=== PATIENT | female | born 1945 | race Caucasian/White ===

== ENCOUNTER → 2017-01-27 | Outpatient (CLI) | payer OTHER, BC ==
[~2017-01-27] VITALS: Ht 160 cm; Wt 65.8 kg
[~2017-01-27] MED LIST: ACCUNEB SO1.25 MG/1 INH; ADVAIR 100-501 EACH INH; ATENOLOL 25 MG25 M1 PO; B COMPLETE1 EAC1 PO; CALCIUM 500 +1 EAC5 PO; DIOVAN40 MG PO; DULERA 200 MCG/13 GM; LEVOTHYROXIN0.025 MG PO; NORVASC 5 MG TAB5 MG PO; OXYBUTYNIN 5 MG5 M2 PO; POTASSIUM20 PO; PRAVACHOL 20 MG20 M1 PO; PRAVACHOL40 MG PO; PREVACID 30MG C30 M1 PO; PREVACID30 MG PO; PROVENTIL17 G1 IH; SINEMET 25-1001 EAC1 PO; SINGULAIR 10 MG10 M1 PO; SYMBICORT80 MCG/4.1 INH; SYNTHROID; TURMERIC500 MG PO; ZYRTEC10 M5 PO
--- NOTE | ~2017-01-27 | P ---
[facility] [place] [address] PROCEDURE REPORT Name: DIOGENES MIX Room #: REG [facility].#: [id number] Admission: 01/27/17 Attend Phys: Alli Rebolledo MD Discharge: Date of : 41 Report #: [id number] THIS REPORT FOR: //name// CC: Alli Solorzano MD BRIEF HISTORY: The patient is a 72-year-old woman with a history of colon polyps, for high-risk screening colonoscopy. PREOPERATIVE DIAGNOSIS: High-risk screening colonoscopy due to its colon polyps. POSTOPERATIVE DIAGNOSES: 1. Colon polyp. 2. Zuom-jg-scenckta sigmoid diverticular disease. MEDICATIONS: Deep sedation with propofol per anesthesia. SPECIMEN: Polyp from 40 cm. ESTIMATED BLOOD LOSS: 3 mL. PROCEDURE: Colonoscopy to cecum and terminal ileum with snare polypectomy. FINDINGS: Prior to propofol sedation, procedure of colonoscopy discussed with the patient as well as potential risks and its complications. She indicates she understands and desires to proceed. DESCRIPTION OF PROCEDURE: With the patient in the left lateral decubitus position, digital examination was completed, which revealed no abnormalities. Subsequently, the Godengo video colonoscope was introduced into the rectum and advanced under direct vision to the cecum. Done with minimal difficulty. The cecum was identified by the ileocecal valve and the appendiceal orifice. I was able to visualize the distal segment of the terminal ileum, which was inspected and noted to be unremarkable. At that point, the scope was slowly withdrawn and careful circumferential views obtained, including retroflexing the scope in the ascending colon. Upon slow withdrawal of the scope, there were noted be some limitations. However, fortunately, we were able to clean up almost all of this material and overall, we were able to obtain a good prep. The mucosa was within normal limits. Normal vascular pattern, normal light reflex. As we withdrew the scope, the mucosa was normal and no abnormalities were noted until the sigmoid colon was reached. In the proximal sigmoid colon at 40 cm, a 6-mm sessile polyp was seen and removed by cold snare polypectomy and recovered. Scope was further withdrawn and there was noted to be pmmo-jl-phewhxfp diverticular disease and endoscopic evidence of diverticulitis. Scope was withdrawn in the rectum. Upon retroflexion, no additional abnormalities were [address] [address] PROCEDURE REPORT Name: DIOGENES MIX Room #: REG [facility]#: [id number] Admission: 01/27/17 Attend Phys: Alli Rebolledo MD Discharge: Date of : 41 Report #: [id number]. Scope was withdrawn. The patient tolerated the procedure well. CONDITION OF THE PATIENT UPON DISCHARGE: Following the procedure, the patient drowsy, aroused and conversant and will be discharged home when fully ambulatory. INSTRUCTIONS TO THE PATIENT AND FAMILY AT THE TIME OF DISCHARGE: We will follow up on the path of the polyp. If this is an adenoma, she will return in 5 years. If it is not a neoplastic polyp, then 10 years would be indicated. Suggest high-fiber diet for the diverticular disease. Last colonoscopy was more than 4 years ago. Withdrawal time from cecum was 18 minutes. By: 0853 [id number] Alli Rebolledo MD /nt
--- NOTE | ~2017-01-27 | P ---
[facility] [place] [address] PROCEDURE REPORT Name: DIOGENES MIX [facility] [id number] Admission: 01/27/17 Attend Phys: Alli Rebolledo MD Discharge: Date of : 41 Report #: [id number] THIS REPORT FOR: //name// CC: Alli Solorzano MD DATE OF SERVICE: 01/27/2017 BRIEF HISTORY: The patient is a 72-year-old woman with recurrent solid food dysphagia. PREOPERATIVE DIAGNOSIS: Recurrent solid food dysphagia. POSTOPERATIVE DIAGNOSES: 1. Dysphagia. 2. Diffuse gastritis. 3. Multiple benign appearing polyps body and fundus of the stomach. MEDICATIONS: Deep sedation with propofol per anesthesia. SPECIMEN: None. ESTIMATED BLOOD LOSS: None. PROCEDURE: EGD and Cruz dilation. FINDINGS: Prior to propofol sedation, procedure of upper endoscopy and dilation was reviewed with the patient as well as potential risks and its complications. She indicates she understands and desires to proceed. DESCRIPTION OF PROCEDURE: With the patient in left lateral decubitus position, the Clipyooi video endoscope was inserted in the cervical esophagus under direct vision without difficulty. Examination of this organ through its entire length revealed normal esophageal mucosa down the squamocolumnar junction. The squamocolumnar junction was identified and was intact and appeared to be normal and appropriate position. No ulcers or erosions were seen. I did not see an obvious stricture or ring, but she has been presumed to have a Schatzki ring in the past. A significant hiatus hernia was not seen. Scope was advanced in the stomach, which was examined on end view as well as retroflexed views. There was erythema in the antrum of the stomach consistent with gastritis. This has been noted in the past and previous biopsies were negative for H. pylori and those were not repeated today. Examination of the proximal stomach on end view as well as retroflexed views revealed multiple small gastric polyps. These have been identified before and likely represent hyperplastic polyps in a patient with the chronic use of PPIs. The pylorus, duodenal bulb and postbulbar sweep [facility] [address] [place] [address] PROCEDURE REPORT Name: DIOGENES MIX Room #: REG [facility].#: [id number] Admission: 01/27/17 Attend Phys: Alli Rebolledo MD Discharge: Date of : 41 Report #: [id number] were inspected and noted to be unremarkable. At that point, the scope was slowly withdrawn and careful circumferential views confirmed the above findings. The patient tolerated the procedure well. Following the procedure, she was dilated with passage of 52 Khmer Cruz dilator. There was no resistance. INSTRUCTIONS TO THE PATIENT AND FAMILY AT THE TIME OF DISCHARGE: Although I did not see an obvious stricture, ring is presumed, one is present. We can repeat dilation on an as needed basis based on symptoms. She does have a history of Parkinson disease, but she has also had this problem in the past. She is to return on an as needed basis. As far as PPIs, she may take them less daily if her symptoms are controlled with a target of lowest dose to control symptoms. Proceed with colonoscopy at this time. By: 0815 1335 Alli Rebolledo MD /nt
== END | disposition home or self-care (01) ==
LOC: GI 06:55
DX: Z12.11 Encounter for screening for malignant neoplasm of colon (principal); K63.5 Polyp of colon; K31.7 Polyp of stomach and duodenum; K57.30 Diverticulosis of large intestine without perforation or abscess without bleeding; R13.19 Other dysphagia; K29.60 Other gastritis without bleeding; G20 Parkinson's disease; I10 Essential (primary) hypertension; J45.909 Unspecified asthma, uncomplicated; E78.00 Pure hypercholesterolemia, unspecified; E03.9 Hypothyroidism, unspecified; K21.9 Gastro-esophageal reflux disease without esophagitis; Z90.710 Acquired absence of both cervix and uterus; Z98.42 Cataract extraction status, left eye; Z98.41 Cataract extraction status, right eye; Z96.1 Presence of intraocular lens; Z98.890 Other specified postprocedural states
CPT/HCPCS: 62110

== ENCOUNTER 2020-03-05 14:26 | Inpatient (IN) | payer OTHER, BC ==
[~2020-03-05] VITALS: Ht 160 cm; Wt 64.0 kg
[2020-03-05 14:36] VITALS: BP 236/99
[2020-03-05 15:04] LABS: ABSOLUTE NEUTROPHILS 4.8 thou/uL (1.4-8.2); BASOPHILS 0.8 % (0.0-2.0); EOSINOPHILS 1.2 % (0.0-3.0); HEMATOCRIT 38.1 % (37.0-47.0); HEMOGLOBIN 13.1 gm/dL (12.0-15.0); LYMPHOCYTES 13.2 % (24.0-44.0); MCH 30.4 pg (26.0-34.0); MCHC 34.3 g/dL (28.0-37.0); MCV 88.6 fL (80.0-100.0); MONOCYTES 9.8 % (1.0-8.0); PLATELET COUNT 210 thou/uL (150-400); RBC 4.31 mil/uL (4.20-5.00); WBC 6.4 thou/uL (4.0-11.0)
[2020-03-05 15:16] LABS: CALCIUM 9.2 mg/dL (8.5-10.1); CREATININE 1.4 mg/dL (0.6-1.0)
[2020-03-05 15:23] LABS: ALBUMIN 3.5 g/dL (3.4-5.0); TOTAL BILIRUBIN 0.5 mg/dL (<0.1-1.0); TOTAL PROTEIN 7.4 g/dL (6.4-8.2)
[2020-03-05 15:24] LABS: POTASSIUM 2.9 mmol/L (3.5-5.1)
[2020-03-05 18:09] VITALS: BP 217/101
[2020-03-05 18:21] VITALS: BP 206/87
--- NOTE | 2020-03-05 18:22 | NUR ---
ATTEMPTED TO CALL REPORT TO CCU. NURSE UNAVAILABLE AND WILL CALL BACK
[2020-03-05 19:30] VITALS: BP 229/72; BP 229/80
[2020-03-05] MEDS ORDERED: METRONIDAZOLE500 M4 PO (20:15)
[2020-03-05] MEDS ORDERED: RIVASTIGMINE6 MG PO (20:16)
[2020-03-05] MEDS ORDERED: ZOLOFT 50 MG TA50 M1 PO (20:17)
[2020-03-05] MEDS ORDERED: BYSTOLIC10 MG PO (20:20)
[2020-03-06] VITALS (7 sets, daily range): BP systolic 115–208; BP diastolic 52–88
--- NOTE | 2020-03-06 02:19 | NUR ---
PATIENT ADMITTED FROM ER PER CART AT 1900. ADMISSION PROCESS COMPLETED. UP AD RODRIGO IN ROOM WITH STEADY GAIT. BP 229/80 ON ADMIT - NOTIFIED DR. RODRIGUEZ AND CONSULTED DR BURGOS FOR FURTHER ORDERS. BP MEDICATIONS GIVEN. DENIES FEELINGS OF DIZZYNESS OR HEADACHE AT THIS TIME. INSTRUCTED TO NOTIFY NURSE AT ONCE IF SYPTOMS ARISE. DENIES COMPLAINTS OF PAIN. WORKING ON GOALS AND PLAN OF CARE FOR NOC. ORIENTED TO ROOM AND FLOOR POLICIES. 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 CONTINUE TO ASSES CLOSELY.
--- NOTE | 2020-03-06 04:53 | NUR ---
[address] BURGOS PAST MEDICATIONS ORDERED BP STILL ELEVATED AT 207/66. ORDERS RECIEVED AND ASKED TO JUST LET HER SLEEP THE REST OF NOC. PATIENT DENIES COMPLAINTS OF PAIN, DIZZYNESS OR HEADACHE. CONTINUE TO ASSES CLOSELY. HEART RATE IN THE 40'S WHILE SLEEPING - INFORMED DR. BURGOS. NO ORDERS FOR HR.
[2020-03-06 05:40] LABS: HEMATOCRIT 35.5 % (37.0-47.0); HEMOGLOBIN 11.9 gm/dL (12.0-15.0); MCH 30.1 pg (26.0-34.0); MCHC 33.5 g/dL (28.0-37.0); MCV 89.9 fL (80.0-100.0); RBC 3.95 mil/uL (4.20-5.00); RDW 14.8 % (10.5-14.5)
[2020-03-06 06:08] LABS: CALCIUM 8.6 mg/dL (8.5-10.1); CREATININE 1.2 mg/dL (0.6-1.0); POTASSIUM 3.3 mmol/L (3.5-5.1)
[2020-03-06] MEDS ORDERED: OXYBUTYNIN CHLO15 MG PO (06:56)
--- NOTE | 2020-03-06 07:59 | EKG ---
[facility] [place] [address] ELECTROCARDIOGRAM REPORT Name: DIOGENES MIX Room #: 211-P ADM IN M.R.#: [id number] Admission: 03/05/20 Attend Phys: Shakeel Solorzano MD Discharge: Date of : 41 Report #: [id number] THIS REPORT FOR: cc: Shakeel Solorzano MD, Neal A. 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 : 1945 Requested By: Emiliano Bowman Order Number: [id number] MD: Raoul Morales Measurements Intervals [place] Rate: 63 P: 21 AL: 178 QRS: -17 QRSD: 115 T: -13 QT: 569 QTc: 583 Interpretive Statements Sinus rhythm LVH with IVCD and secondary repol abnrm Prolonged QT interval Compared to ECG 02/15/2011 11:04:06 Prolonged QT interval now present Nonspecific change in the ST and T wave segments Electronically Signed On 03-06-2020 7:57:51 CDT by Raoul Morales [email or web address] <ELECTRONICALLY SIGNED> By: Raoul Morales MD, [facility] 03/06/20 0757 1516 1516 Raoul Morales MD, [facility] /EPI
--- NOTE | 2020-03-06 08:11 | EKG ---
[facility] [place] [address] ELECTROCARDIOGRAM REPORT Name: DIOGENES MIX Room #: 211-P ADM IN M.R.#: [id number] Admission: 03/05/20 Attend Phys: Shakeel Solorzano MD Discharge: Date of : 41 Report #: [id number] THIS REPORT FOR: cc: Shakeel Solorzano MD, Neal A. 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 : 1945 Requested By: Howard Barrett Order Number: [id number] MD: Raoul Morales Measurements Intervals [place] Rate: 51 P: 37 [place]: 163 QRS: -13 QRSD: 98 T: -60 QT: 448 QTc: 413 Interpretive Statements Sinus bradycardia LVH with secondary repolarization abnormality Nonspecific ST and T wave abnormality Compared to ECG 02/15/2011 11:04:06 Early R wave progression no longer present Electronically Signed On 03-06-2020 8:09:39 CDT by Raoul Morales [email or web address] <ELECTRONICALLY SIGNED> By: Raoul Morales MD, [facility] 03/06/20 [phone] 0755 Raoul Morales MD, [facility] /EPI
--- NOTE | 2020-03-06 12:58 | 2DMMODE ---
[facility] [place] [address] 2 D/M-MODE ECHOCARDIOGRAM Name: DIOGENES MIX Room #: 211-P ADM IN M.R.#: [id number] Admission: 03/05/20 Attend Phys: Shakeel Solorzano MD Discharge: Date of : 43 Report #: [id number] THIS REPORT FOR: cc: Shakeel Solorzano MD, Neal A. MD Lundgren, Craig H. MD [facility] ~ APPROVED REPORT Study performed: 03/06/2020 11:08:50 EXAM: Comprehensive 2D, Doppler, and color-flow Echocardiogram Patient Location: Bedside Room #: 211 Status: routine BSA: 1.66 HR: 55 bpm BP: 186/88 mmHg Rhythm: Bradycardia Other Information Study Quality: Good Indications Hypertension/HDD 2D Dimensions RVDd: 28.92 mm IVSd: 10.75 (7-11mm) LVOT Diam: 18.28 (18-24mm) LVDd: 40.29 mm PWd: 9.98 (7-11mm) Ascending Ao: 25.30 (22-36mm) LVDs: 27.64 (25-40mm) Aortic Root: 24.25 mm IVC: 18.00 mm Volumes Left Atrial Volume (Systole) Single Plane 4CH: 75.53 mL Single Plane 2CH: 56.45 mL LA ESV Index: 43.00 mL/m2 Aortic Valve AoV Peak Brant.: 1.66 m/s AO Peak Gr.: 10.99 mmHg LVOT Max P.64 mmHg LVOT Max V: 1.08 m/s DANIEL Vmax: 1.71 cm2 [facility] [address] [place] [address] 2 D/M-MODE ECHOCARDIOGRAM Name: DIOGENES MIX Room #: 211-P [facility] IN ..#: [id number] Admission: 03/05/20 Attend Phys: Shakeel Solorzano, Discharge: Date of : 41 Report #: [id number] Mitral Valve E/A Ratio: 1.2 MV Decel. Time: 380.69 ms MV E Max Brant.: 0.84 m/s MV A Brant.: 0.73 m/s MV PHT: 110.40 ms IVRT: 133.79 ms Pulmonary Valve PV Peak Brant.: 0.86 m/s PV Peak Gr.: 2.95 mmHg Tricuspid Valve TR Peak Brant.: 3.01 m/s TR Peak Gr.: 36.26 mmHg PA Pressure: 41.00 mmHg Left Ventricle The left ventricle is normal size. There is normal LV segmental wall motion. There is normal left ventricular wall thickness. The left ventricular systolic function is normal. The left ventricular ejection fraction is within the normal range. LVEF is 55-60%. Moderate diastolic dysfunction is present (pseudonormal filling). Right Ventricle The right ventricle is normal size. The right ventricular systolic function is normal. Atria Left atrium is dilated. The right atrium size is normal. Aortic Valve The aortic valve is sclerotic. Mild aortic regurgitation. There is no aortic valvular stenosis. Mitral Valve Mild mitral annular calcification Mild mitral regurgitation. No evidence of mitral valve stenosis. Tricuspid Valve The tricuspid valve is normal in structure. There is trace tricuspid regurgitation. Estimated PAP 40 mmHg. There is mild-moderate pulmonary hypertension. Pulmonic Valve The pulmonary valve is normal in structure. Trace pulmonic [facility] [address] [place] [address] 2 D/M-MODE ECHOCARDIOGRAM Name: DIOGENES MIX Room #: 211-P [facility] IN M.R.#: [id number] Admission: 03/05/20 Attend Phys: Shakeel Solorzano, Discharge: Date of : 41 Report #: [id number] regurgitation. Great Vessels The aortic root is normal in size. IVC is normal in size and collapses >50% with inspiration. Pericardium There is no pericardial effusion. <Conclusion> The left ventricular systolic function is normal. There is normal LV segmental wall motion. LVEF is 55-60%. Moderate diastolic dysfunction The aortic valve is sclerotic. Mild aortic regurgitation, no stenosis. Mild mitral annular calcification Mild mitral regurgitation. There is trace tricuspid regurgitation. Estimated pulmonary artery pressure of 40 mmHg. There is no pericardial effusion. <ELECTRONICALLY SIGNED> By: Raoul Morales MD, [facility] 03/06/20 1256 1256 1256 Raoul Morales MD, [facility] /INF
--- NOTE | 2020-03-06 20:37 | NUR ---
ASSUMED CARE OF PATIENT AT 0700. ASSESSMENT COMPLETED. PATIENT DENIES ANY PAIN. PATIENT COMPLAINS OF LIGHTHEADEDNESS AT TIMES AND BED ALARM ON. ORTHOSTATIC VITALS TAKEN. ECHO AND EKG COMPLETED. PATIENT'S DIET ADVANCED AT DINNER TO REGULAR. PATIENT TO CONTINUE WITH POC.
[2020-03-07 04:00] VITALS: BP 185/78
--- NOTE | 2020-03-07 05:33 | NUR ---
PT RESTING QUIETLY IN ROOM, NO C/O PAIN, BP ELEVATED THIS AM 185/78 ABD HR HAS BEEN YVON WITH RATE LOW 40'S TO 50, NO LABS THIS AM, WILL CON'T TO MONITOR PER PPOC.
[2020-03-07 05:46] LABS: CALCIUM 8.7 mg/dL (8.5-10.1); CREATININE 1.3 mg/dL (0.6-1.0); POTASSIUM 3.6 mmol/L (3.5-5.1)
[2020-03-07 07:30] VITALS: BP 164/73
[2020-03-07] MEDS ORDERED: BENICAR40 MG PO (07:30)
[2020-03-07 10:18] VITALS: BP 164/73
--- NOTE | 2020-03-07 10:54 | NUR ---
ASSUMED CARE 0700. ALERT X3, ANXIOUS AND FORGETFUL HX OF DEMENCIA/PARKINSON. STAND BY ASSIST. DIZZINESS WHEN TURNING HEAD. PT TO DC HOME WITH SELF CARE. IV AND TELE REMOVED.
== END 2020-03-07 11:30 | disposition home or self-care (01) | DRG 683 ==
LOC: ER 14:26 → EROBS 17:23 → 2N 17:23
PROVIDERS: Emergency Medicine; Nurse Practitioner; ADMIT Family Medicine
DX: N17.9 Acute kidney failure, unspecified (principal); N39.0 Urinary tract infection, site not specified; I16.0 Hypertensive urgency; E87.6 Hypokalemia; R94.31 Abnormal electrocardiogram [ECG] [EKG]; E03.9 Hypothyroidism, unspecified; I10 Essential (primary) hypertension; E78.00 Pure hypercholesterolemia, unspecified; J45.909 Unspecified asthma, uncomplicated; R19.7 Diarrhea, unspecified; G20 Parkinson's disease; Z79.899 Other long term (current) drug therapy; Z90.49 Acquired absence of other specified parts of digestive tract; Z90.710 Acquired absence of both cervix and uterus; Z98.42 Cataract extraction status, left eye; Z98.41 Cataract extraction status, right eye; Z82.49 Family history of ischemic heart disease and other diseases of the circulatory system
CPT/HCPCS: 10081

== ENCOUNTER → 2020-03-10 | Outpatient (CLI) | payer OTHER, BC ==
[~2020-03-10] MED LIST changes: +BENICAR40 MG PO; +BYSTOLIC10 MG PO; +METRONIDAZOLE500 M4 PO; +OXYBUTYNIN CHLO15 MG PO; +RIVASTIGMINE6 MG PO; +ZOLOFT 50 MG TA50 M1 PO
== END ==
LOC: SJCVCIMAG 09:28
DX: I10 Essential (primary) hypertension (principal); R10.84 Generalized abdominal pain; E78.5 Hyperlipidemia, unspecified; G20 Parkinson's disease; Z79.899 Other long term (current) drug therapy

== ENCOUNTER → 2020-03-19 | Outpatient (CLI) | payer OTHER, BC | LOC: CAT 08:13 | DX: K57.30 Diverticulosis of large intestine without perforation or abscess without bleeding (principal); I70.0 Atherosclerosis of aorta; K76.89 Other specified diseases of liver; K31.89 Other diseases of stomach and duodenum ==

== ENCOUNTER → 2020-04-23 | Outpatient (CLI) | payer OTHER, BC | LOC: SJCVC 15:34 | PROVIDERS: ATTEND Internal Medicine Cardiovascular Disease | DX: I10 Essential (primary) hypertension (principal); R94.31 Abnormal electrocardiogram [ECG] [EKG]; E78.5 Hyperlipidemia, unspecified; G20 Parkinson's disease; I95.1 Orthostatic hypotension; Z90.49 Acquired absence of other specified parts of digestive tract; Z90.710 Acquired absence of both cervix and uterus; Z79.899 Other long term (current) drug therapy ==

== ENCOUNTER → 2020-08-12 | Outpatient (CLI) | payer OTHER, BC | LOC: SJCVC 09:43 | PROVIDERS: ATTEND Internal Medicine Cardiovascular Disease | DX: R94.31 Abnormal electrocardiogram [ECG] [EKG] (principal); I10 Essential (primary) hypertension; I44.7 Left bundle-branch block, unspecified; E78.5 Hyperlipidemia, unspecified; G20 Parkinson's disease; Z82.49 Family history of ischemic heart disease and other diseases of the circulatory system ==

== ENCOUNTER → 2020-10-07 | Outpatient (CLI) | payer OTHER, BC | LOC: RAD 08:15 | PROVIDERS: ATTEND Family Medicine | DX: R13.10 Dysphagia, unspecified (principal) ==

== ENCOUNTER → 2021-05-12 | Outpatient (CLI) | payer OTHER, BC | LOC: SJCVC 11:15 | PROVIDERS: ATTEND Internal Medicine Cardiovascular Disease | DX: R94.31 Abnormal electrocardiogram [ECG] [EKG] (principal); R00.1 Bradycardia, unspecified; I45.4 Nonspecific intraventricular block; E78.5 Hyperlipidemia, unspecified; I11.9 Hypertensive heart disease without heart failure; G20 Parkinson's disease; I95.1 Orthostatic hypotension; E03.9 Hypothyroidism, unspecified; Z79.899 Other long term (current) drug therapy; Z88.8 Allergy status to other drugs, medicaments and biological substances ==